=== PATIENT | female | born 1975 | race Caucasian/White ===

== ENCOUNTER 2021-01-23 13:33 | Inpatient (IN) ==
[2021-01-23] MEDS ORDERED: SODIUM CHLORIDE 0.9% 1,000 ML IV STA (16:10)
[2021-01-23] MEDS ORDERED: ALBUTEROL 2.5 MG/3 ML NEB RESP TX STA (16:10)
[2021-01-23] MEDS ORDERED: AZITHROMYCIN INJ 500 MG in SODIUM CHLORIDE 0.9% 250 ML IV STA (16:50)
[2021-01-23] MEDS ORDERED: cefTRIAXone 1,000 MG in SODIUM CHLORIDE 0.9% 100 ML IV STA (16:50)
[2021-01-23 18:05] LABS: Basophils % 0.1 % (0.0-0.8); Hematocrit 38.8 VOL% (35.7-47.0); Hemoglobin 12.5 GM/DL (12.0-16.0); Immature Granulocytes % 0.8 %; Immature Granulocytes Absolute 0.08 #; Lymphocytes # 0.6 10*3/uL (1.4-4.0); Lymphocytes % 5.7 % (21.3-54.2); Mean Corpuscular HGB Conc 32.2 GM/DL (32-36); Mean Platelet Volume 10.8 FL (9.6-12.0); Monocytes % 5.2 % (1.7-12.7); Neutrophils % 88.2 % (38.7-73.9); Platelet Count 211 T/CUMM (130-400); Red Blood Count 4.31 MC/CUMM (3.8-5.5); White Blood Count 9.6 T/CUMM (4-12)
[2021-01-23 18:33] LABS: Ferritin 107.7 ng/ml (8-252)
[2021-01-23 18:33] LABS: Albumin 3.1 G/DL (3.4-5.0); Bilirubin,Total 0.4 MG/DL (0.20-1.00); Calcium 8.4 MG/DL (8.5-10.1); Osmolality,Calculated 276.8 MOS/KG (273-304)
[2021-01-23] MEDS ORDERED: DIPHENOXYLATE/ATROPINE 2.5-0.025 MG TABLET PO STA (20:44)
[2021-01-23] MEDS ORDERED: guaiFENesin/DM ER 600-30 MG TABLET PO PRN (21:20)
[2021-01-23] MEDS: ENOXAPARIN 40 MG/0.4 ML SYRINGE SUBCUT SCH (22:07)
[2021-01-23] MEDS ORDERED: ZALEPLON 5 MG CAPSULE PO STA (22:28)
[2021-01-24] MEDS: ACETAMINOPHEN 325 MG TABLET PO PRN ×2 (05:25→21:05)
[2021-01-24 06:13] LABS: Basophils % 0.1 % (0.0-0.8); Hematocrit 38.1 VOL% (35.7-47.0); Immature Granulocytes % 1.6 %; Immature Granulocytes Absolute 0.13 #; Lymphocytes # 0.8 10*3/uL (1.4-4.0); Lymphocytes % 9.3 % (21.3-54.2); Mean Corpuscular HGB Conc 31.5 GM/DL (32-36); Mean Corpuscular Volume 90.7 FL (87-102); Monocytes % 12.3 % (1.7-12.7); Neutrophils % 76.7 % (38.7-73.9); Platelet Count 212 T/CUMM (130-400); Red Cell Distribution Width 15.2 % (9.3-17.3); White Blood Count 8.2 T/CUMM (4-12)
[2021-01-24 06:33] LABS: Albumin 2.7 G/DL (3.4-5.0); Bilirubin,Total 0.7 MG/DL (0.20-1.00); Calcium 8.4 MG/DL (8.5-10.1); Osmolality,Calculated 278.5 MOS/KG (273-304); Potassium 3.9 MMOL/L (3.5-5.1); Risk Ratio 4.4; Total Protein 6.8 G/DL (6.4-8.2); VLDL Cholesterol 62.2 MG/DL
[2021-01-24] MEDS ORDERED: IVERMECTIN 3 MG TABLET PO SCH (09:00)
[2021-01-24] MEDS: PANTOPRAZOLE 40 MG TABLET PO SCH (10:16)
[2021-01-24] MEDS: ZINC SULFATE 220 MG CAPSULE PO SCH (10:16)
[2021-01-24] MEDS: CETIRIZINE 10 MG TABLET PO SCH (10:16)
[2021-01-24] MEDS: CHOLECALCIFEROL 400 UNIT TABLET PO SCH (10:16)
[2021-01-24] MEDS: ASCORBIC ACID 500 MG TABLET PO SCH ×2 (10:16→21:05)
[2021-01-24] MEDS: cefTRIAXone 1,000 MG in SODIUM CHLORIDE 0.9% 100 ML IV SCH (10:17)
[2021-01-24] MEDS ORDERED: NAPROXEN 250 MG TABLET PO PRN (10:49)
[2021-01-24] MEDS ORDERED: REMDESIVIR 200 MG in SODIUM CHLORIDE 0.9% 210 ML IV ONE (11:00)
[2021-01-24] MEDS ORDERED: ZALEPLON 5 MG CAPSULE PO PRN (20:38)
[2021-01-24] MEDS ORDERED: SODIUM CHLORIDE 0.65% NASAL SPRAY 45 ML BOTTLE BOTH NARES PRN (20:38)
[2021-01-24] MEDS ORDERED: AZITHROMYCIN INJ 500 MG in SODIUM CHLORIDE 0.9% 250 ML IV SCH (21:00)
[2021-01-24] MEDS: ENOXAPARIN 40 MG/0.4 ML SYRINGE SUBCUT SCH (21:05)
[2021-01-24] MEDS: ONDANSETRON 4 MG/2 ML VIAL IV PRN (21:06)
[2021-01-25] MEDS: ACETAMINOPHEN 325 MG TABLET PO PRN (03:20)
[2021-01-25] MEDS ORDERED: IVERMECTIN 3 MG TABLET PO SCH (09:00)
[2021-01-25] MEDS: CHOLECALCIFEROL 400 UNIT TABLET PO SCH (10:26)
[2021-01-25] MEDS: CETIRIZINE 10 MG TABLET PO SCH (10:26)
[2021-01-25] MEDS: PANTOPRAZOLE 40 MG TABLET PO SCH (10:26)
[2021-01-25] MEDS: ASCORBIC ACID 500 MG TABLET PO SCH (10:26)
[2021-01-25] MEDS: ZINC SULFATE 220 MG CAPSULE PO SCH (10:26)
[2021-01-25] MEDS: cefTRIAXone 1,000 MG in SODIUM CHLORIDE 0.9% 100 ML IV SCH (10:26)
[2021-01-25] MEDS ORDERED: REMDESIVIR 100 MG in SODIUM CHLORIDE 0.9% 100 ML IV SCH (10:30)
[2021-01-25] MEDS: ONDANSETRON 4 MG/2 ML VIAL IV PRN (10:31)
[2021-01-25 16:09] VITALS: BP 175/90
[2021-01-25] MEDS ORDERED: AZITHROMYCIN 250 MG TABLET PO SCH (21:00)
== END 2021-01-25 14:53 | disposition home health service (06) | DRG 177 ==
LOC: N.ED 13:33 → N.EDINP 21:18 → SUATTDRO 21:18 → N.EDINP 23:12 → N.2E 23:21
PROVIDERS: ADMIT Internal Medicine; ATTEND Internal Medicine